=== PATIENT | male | born 1965 | race African-American/Black ===

== ENCOUNTER 2019-01-27 18:41 | Emergency (ER) | payer MEDICAID ==
[~2019-01-27] VITALS: Ht 170.2 cm; Wt 91.0 kg
[~2019-01-27 18:41] MED LIST: ERGO2000 PO; METF-414 PO
[2019-01-27 19:03] VITALS: BP 134/78
== END 2019-01-27 22:11 | disposition left against medical advice (07) ==
LOC: ER 19:59
DX: Z53.21 Procedure and treatment not carried out due to patient leaving prior to being seen by health care provider (principal)

== ENCOUNTER 2019-01-31 17:42 | Inpatient (IN) | payer MEDICAID ==
[~2019-01-31] VITALS: Ht 170.2 cm; Wt 90.7 kg
[2019-01-31 19:02] LABS: CHLORIDE 101 mEq/L (98-107)
[2019-01-31 19:13] LABS: BASOPHILS % 0.7 % (0.0-2.0); EOSINOPHILS % 1.6 % (0.0-5.0); HEMATOCRIT. 45.7 % (42.0-52.0); HEMOGLOBIN. 15.5 g/dL (14.0-18.0); MEAN CORPUSCULAR HEMOGLOBIN 29.1 pg (28.0-32.0); MEAN CORPUSCULAR VOLUME 85.7 fL (80.0-94.0); MONOCYTES % 5.6 % (2.0-8.0); NEUTROPHILS % 59.1 % (40.0-76.0); PLATELET 218 x1000/uL (130-400); RED BLOOD CELL COUNT 5.33 mill/uL (4.7-6.1); RED CELL DISTRIBUTION WIDTH 14.7 % (11.6-14.6)
[2019-01-31] MEDS ORDERED: CLOPIDOGREL 75MG TABLET PO ONE (19:45)
[2019-01-31 21:04] LABS: *AMPHETAMINES SCREEN URINE NEGATIVE (NEGATIVE); *BARBITURATES SCREEN URINE NEGATIVE (NEGATIVE); *BENZODIAZEPINES SCREEN URINE NEGATIVE (NEGATIVE); *COCAINE SCREEN URINE NEGATIVE (NEGATIVE)
[2019-01-31 21:05] LABS: CANNABINOID URINE SCREEN NEGATIVE (NEGATIVE); METHADONE URINE SCREEN NEGATIVE (NEGATIVE); OPIATES URINE SCREEN NEGATIVE (NEGATIVE); PHENCYCLIDINE URINE SCREEN NEGATIVE (NEGATIVE)
[2019-01-31] MEDS ORDERED: ACETAMINOPHEN 325MG TABLET PO PRN (21:30)
[2019-01-31] MEDS ORDERED: ONDANSETRON HCL 4MG/2ML INJ IV PRN (21:30)
[2019-01-31 22:50] VITALS: BP 129/74
[2019-02-01] VITALS: BP 129/66
[2019-02-01] MEDS ORDERED: METO1TAB26 MT (03:22)
[2019-02-01] MEDS ORDERED: METO5AMP3 IV (03:22)
[2019-02-01] MEDS ORDERED: HYDR-4135 MT (03:25)
[2019-02-01] MEDS ORDERED: LISI-604 MT (03:26)
[2019-02-01] MEDS ORDERED: AMLO10TA4 MT (03:30)
[2019-02-01] MEDS ORDERED: HYDR12.518 MT (03:30)
[2019-02-01] MEDS ORDERED: AMLO2.5T2 MT (03:30)
[2019-02-01] MEDS ORDERED: PNEUMOCOCCAL 23-VAL P-SAC VAC 0.5 ML IM ONE (03:30)
[2019-02-01] MEDS ORDERED: ATOR10TA69 MT (03:30)
[2019-02-01 04:00] VITALS: BP 113/83
[2019-02-01 07:44] LABS: BASOPHILS % 0.5 % (0.0-2.0); EOSINOPHILS % 2.5 % (0.0-5.0); HEMATOCRIT. 46.1 % (42.0-52.0); HEMOGLOBIN. 15.6 g/dL (14.0-18.0); LYMPHOCYTES % 38.5 % (20.0-50.0); MEAN CORPUSCULAR HEMOGLOBIN 28.7 pg (28.0-32.0); MEAN PLATELET VOLUME 8.1 fl (7.4-10.4); MONOCYTES % 7.2 % (2.0-8.0); NEUTROPHILS % 51.3 % (40.0-76.0); PLATELET 211 x1000/uL (130-400); RED BLOOD CELL COUNT 5.42 mill/uL (4.7-6.1); RED CELL DISTRIBUTION WIDTH 14.5 % (11.6-14.6)
[2019-02-01 08:12] VITALS: BP 137/78
[2019-02-01] MEDS: ENOXAPARIN 30MG/0.3ML SYR SUBCUT SCH ×2 (09:32→21:18)
[2019-02-01] MEDS: AMLODIPINE 5MG TABLET PO SCH ×2 (09:32→21:17)
[2019-02-01] MEDS: CLOPIDOGREL 75MG TABLET PO SCH (09:32)
[2019-02-01 20:42] VITALS: BP 162/89
[2019-02-01] MEDS ORDERED: ATORVASTATIN CALCIUM 40MG TABLET PO SCH (21:00)
[2019-02-02 00:01] VITALS: BP 136/82
[2019-02-02 04:00] VITALS: BP 122/80
[2019-02-02 07:31] LABS: BASOPHILS % 0.3 % (0.0-2.0); EOSINOPHILS % 3.1 % (0.0-5.0); HEMATOCRIT. 44.9 % (42.0-52.0); LYMPHOCYTES % 41.3 % (20.0-50.0); MEAN CORPUSCULAR HEMOGLOBIN 28.6 pg (28.0-32.0); MEAN CORPUSCULAR VOLUME 85.4 fL (80.0-94.0); MEAN PLATELET VOLUME 7.9 fl (7.4-10.4); MONOCYTES % 7.8 % (2.0-8.0); NEUTROPHILS % 47.5 % (40.0-76.0); PLATELET 212 x1000/uL (130-400); RED BLOOD CELL COUNT 5.25 mill/uL (4.7-6.1); RED CELL DISTRIBUTION WIDTH 14.2 % (11.6-14.6)
[2019-02-02 08:00] VITALS: BP 179/71
[2019-02-02] MEDS: AMLODIPINE 5MG TABLET PO SCH ×2 (09:03→20:44)
[2019-02-02] MEDS: CLOPIDOGREL 75MG TABLET PO SCH (09:03)
[2019-02-02] MEDS: ENOXAPARIN 30MG/0.3ML SYR SUBCUT SCH ×2 (09:03→20:45)
[2019-02-02 12:00] VITALS: BP 148/69
[2019-02-02 16:00] VITALS: BP 166/109
[2019-02-02] MEDS: CLONIDINE 0.1MG TABLET PO PRN (17:16)
[2019-02-02 20:09] VITALS: BP 154/88
[2019-02-02] MEDS: ATORVASTATIN CALCIUM 40MG TABLET PO SCH (20:43)
[2019-02-03] VITALS: BP 145/82
[2019-02-03 04:00] VITALS: BP 147/91
[2019-02-03 06:45] LABS: BASOPHILS % 0.5 % (0.0-2.0); EOSINOPHILS % 3.7 % (0.0-5.0); HEMATOCRIT. 45.7 % (42.0-52.0); HEMOGLOBIN. 15.7 g/dL (14.0-18.0); LYMPHOCYTES % 45.7 % (20.0-50.0); MEAN CORPUSCULAR HEMOGLOBIN 29.2 pg (28.0-32.0); MEAN CORPUSCULAR VOLUME 85.3 fL (80.0-94.0); MEAN PLATELET VOLUME 8.3 fl (7.4-10.4); MONOCYTES % 7.9 % (2.0-8.0); NEUTROPHILS % 42.2 % (40.0-76.0); PLATELET 216 x1000/uL (130-400); RED BLOOD CELL COUNT 5.36 mill/uL (4.7-6.1); RED CELL DISTRIBUTION WIDTH 14.4 % (11.6-14.6)
[2019-02-03 08:00] VITALS: BP 160/91
[2019-02-03] MEDS: CLOPIDOGREL 75MG TABLET PO SCH (08:57)
[2019-02-03] MEDS: ENOXAPARIN 30MG/0.3ML SYR SUBCUT SCH ×2 (08:57→23:20)
[2019-02-03] MEDS: AMLODIPINE 5MG TABLET PO SCH ×2 (08:58→23:20)
[2019-02-03] MEDS: CLONIDINE 0.1MG TABLET PO PRN (08:58)
[2019-02-03 12:00] VITALS: BP 141/89
[2019-02-03] MEDS: METOPROLOL TARTRATE 25MG TABLET PO SCH ×2 (12:54→23:19)
[2019-02-03 16:00] VITALS: BP 124/82
[2019-02-03 20:00] VITALS: BP 152/97
[2019-02-03] MEDS: ATORVASTATIN CALCIUM 40MG TABLET PO SCH (23:18)
[2019-02-04] VITALS: BP 149/95
[2019-02-04 04:00] VITALS: BP 146/81
[2019-02-04 07:17] LABS: BASOPHILS % 0.5 % (0.0-2.0); EOSINOPHILS % 2.9 % (0.0-5.0); HEMATOCRIT. 42.9 % (42.0-52.0); HEMOGLOBIN. 14.7 g/dL (14.0-18.0); LYMPHOCYTES % 45.5 % (20.0-50.0); MEAN CORPUSCULAR HEMOGLOBIN 29.3 pg (28.0-32.0); MEAN CORPUSCULAR VOLUME 85.5 fL (80.0-94.0); MEAN PLATELET VOLUME 8.4 fl (7.4-10.4); MONOCYTES % 5.2 % (2.0-8.0); NEUTROPHILS % 45.9 % (40.0-76.0); PLATELET 201 x1000/uL (130-400); RED BLOOD CELL COUNT 5.02 mill/uL (4.7-6.1); RED CELL DISTRIBUTION WIDTH 14.4 % (11.6-14.6)
[2019-02-04 07:49] LABS: CHLORIDE 104 mEq/L (98-107)
[2019-02-04 08:00] VITALS: BP 132/69
[2019-02-04] MEDS: ENOXAPARIN 30MG/0.3ML SYR SUBCUT SCH (08:47)
[2019-02-04] MEDS: CLOPIDOGREL 75MG TABLET PO SCH (08:48)
[2019-02-04] MEDS: METOPROLOL TARTRATE 25MG TABLET PO SCH (08:48)
[2019-02-04] MEDS: AMLODIPINE 5MG TABLET PO SCH (08:48)
[2019-02-04 12:00] VITALS: BP 140/88
[2019-02-04 12:55] VITALS: BP 140/88
== END 2019-02-04 14:09 | disposition home or self-care (01) | DRG 45 ==
LOC: ER 17:42 → EDBEDREQTM 21:11 → 8WST 21:11 → EDBEDREQ 21:11 → ENRESERV 21:57
PROVIDERS: ADMIT Internal Medicine; ATTEND Internal Medicine
DX: I63.532 Cerebral infarction due to unspecified occlusion or stenosis of left posterior cerebral artery (principal); N17.0 Acute kidney failure with tubular necrosis; I12.9 Hypertensive chronic kidney disease with stage 1 through stage 4 chronic kidney disease, or unspecified chronic kidney disease; E11.22 Type 2 diabetes mellitus with diabetic chronic kidney disease; G47.33 Obstructive sleep apnea (adult) (pediatric); I67.2 Cerebral atherosclerosis; N18.2 Chronic kidney disease, stage 2 (mild); E78.5 Hyperlipidemia, unspecified; E66.9 Obesity, unspecified; Z86.73 Personal history of transient ischemic attack (TIA), and cerebral infarction without residual deficits; Z91.19 Patient's noncompliance with other medical treatment and regimen; Z88.6 Allergy status to analgesic agent; Z79.899 Other long term (current) drug therapy; Z71.3 Dietary counseling and surveillance; Z68.31 Body mass index [BMI] 31.0-31.9, adult; Z79.84 Long term (current) use of oral hypoglycemic drugs
CPT/HCPCS: 36415; 70544; 70551; 80048; 80061; 80305; 80320; 82140; 82962; 83036; 90732; 93005; 93306; 93880; 97161; 97166; 99285; J1650; G0480

== ENCOUNTER 2019-02-25 22:13 | Emergency (ER) | payer MEDICAID ==
[~2019-02-25] VITALS: Ht 170.2 cm; Wt 87.0 kg
[~2019-02-25 22:13] MED LIST changes: +AMLO10TA4 MT; +ATOR10TA69 MT
[2019-02-25] MEDS ORDERED: AMLODIPINE 10MG TABLET PO ONE (23:00)
[2019-02-25] MEDS ORDERED: CLONIDINE 0.3MG TABLET PO ONE (23:45)
[2019-02-25 23:46] LABS: BASOPHILS % 0.6 % (0.0-2.0); EOSINOPHILS % 1.5 % (0.0-5.0); HEMOGLOBIN. 15.4 g/dL (14.0-18.0); LYMPHOCYTES % 37.2 % (20.0-50.0); MEAN CORPUSCULAR HEMOGLOBIN 28.8 pg (28.0-32.0); MEAN CORPUSCULAR VOLUME 84.2 fL (80.0-94.0); MEAN PLATELET VOLUME 7.8 fl (7.4-10.4); MONOCYTES % 6.4 % (2.0-8.0); NEUTROPHILS % 54.3 % (40.0-76.0); PLATELET 200 x1000/uL (130-400); RED BLOOD CELL COUNT 5.35 mill/uL (4.7-6.1); RED CELL DISTRIBUTION WIDTH 14.9 % (11.6-14.6)
[2019-02-25 23:47] LABS: CHLORIDE 103 mEq/L (98-107)
[2019-02-26 02:05] VITALS: BP 128/86
== END 2019-02-26 02:06 | disposition home or self-care (01) ==
LOC: ER 22:13
DX: I16.0 Hypertensive urgency (principal); I12.9 Hypertensive chronic kidney disease with stage 1 through stage 4 chronic kidney disease, or unspecified chronic kidney disease; E11.22 Type 2 diabetes mellitus with diabetic chronic kidney disease; N18.9 Chronic kidney disease, unspecified; Z79.82 Long term (current) use of aspirin; Z86.73 Personal history of transient ischemic attack (TIA), and cerebral infarction without residual deficits
CPT/HCPCS: 36415; 71045; 83880; 84484; 93005; 99284